=== PATIENT | male | born 1950 | race Hispanic/Latino ===

== ENCOUNTER 2018-09-19 12:26 | Inpatient (IN) | payer BC ==
[2018-09-19] MEDS: diltiaZEM IVPB 100mg in NS 100 ML IV ONE ×2 (12:52→13:30)
--- NOTE | 2018-09-19 12:56 | ED PDOC ---
Arrival/HPI - General Chief Complaint: Chest Pain Historian: Patient - History of Present Illness Narrative History of Present Illness (Text): 09/19/18 12:51 A 68 year old male, with no known past medical history, presents to the emergency department with a complaint of palpitations. The patient notes that he felt his heart racing this morning. He reports that he has been experiencing left arm pain for the past month, but believed it was due to arthritis. He states that he checked his blood pressure today which was high this morning. He states that he began to feel short of breath and diaphoretic. The patient currently complains of headache. He notes that he had a stress test done 10 years ago, but has not been evaluated by a superintendent renting managing since then. The patient denies fevers, chills, dizziness, dyspnea on exertion, cough, abdominal pain, nausea, vomiting, diarrhea, back pain, neck pain, urinary/bowel changes, or any other complaint. PMD: Dr. Erasto Aguila Time/Duration: Other (Today) Symptom Onset: Sudden Symptom Course: Unchanged Activities at Onset: Rest, Light Context: Home Past Medical History - Provider Review Nursing Documentation Reviewed: Yes - Psychiatric Hx Substance Use: No Family/Social History - Physician Review Nursing Documentation Reviewed: Yes Family/Social History: No Known Family HX Smoking Status: Never Smoked Hx Alcohol Use: No Hx Substance Use: No Allergies/Home Meds Allergies/Adverse Reactions: Allergies No Known Allergies Allergy (Verified 09/19/18 12:31) Home Medications: Home Meds Medication Instructions Recorded Confirmed Aspirin [Aspirin Chewable] 81 mg PO DAILY 09/19/18 09/19/18 Review of Systems - Physician Review All systems were reviewed & negative as marked: Yes - Review of Systems Constitutional: absent: Fevers ENT: absent: Sore Throat Respiratory: SOB. absent: Cough Cardiovascular: Palpitations Gastrointestinal: absent: Abdominal Pain, Stool Changes, Diarrhea, Nausea, Vomiting Genitourinary Male: absent: Urinary Output Changes Musculoskeletal: absent: Back Pain, Neck Pain Neurological: Headache. absent: Dizziness Endocrine: Diaphoresis Physical Exam Vital Signs Reviewed: Yes Vital Signs Temp Pulse Resp BP Pulse Ox 09/19/18 12:29 97.7 F 110 H 18 199/107 H 99 Temperature: Afebrile Blood Pressure: Hypertensive Pulse: Tachycardic Respiratory Rate: Normal Appearance: Positive for: Well-Appearing, Non-Toxic, Comfortable Pain Distress: None Mental Status: Positive for: Alert and Oriented X 3 - Systems Exam Head: Present: Atraumatic, Normocephalic Pupils: Present: PERRL Extroacular Muscles: Present: EOMI Conjunctiva: Present: Normal Mouth: Present: Moist Mucous Membranes Neck: Present: Normal Range of Motion Respiratory/Chest: Present: Clear to Auscultation, Good Air Exchange. No: Respiratory Distress, Accessory Muscle Use, Rales, Retracting, Rhonchi Cardiovascular: Present: Irregular Rhythm (Irregularly irregular). No: Murmurs Abdomen: Present: Distention. No: Tenderness, Rebound, Guarding Back: Present: Normal Inspection Upper Extremity: Present: Normal Inspection. No: Cyanosis, Edema Lower Extremity: Present: Normal Inspection. No: Edema Neurological: Present: GCS=15, CN II-XII Intact, Speech Normal Skin: Present: Warm, Dry, Normal Color. No: Rashes Psychiatric: Present: Alert, Oriented x 3, Normal Insight, Normal Concentration Medical Decision Making ED Course and Treatment: 09/19/18 12:58 Impression: A 68 year old male presents to the emergency department with a complaint of palpations, shortness of breath, headache, and becoming diaphoretic this morning. Plan: -- EKG -- Chest X-ray -- Urinalysis -- Labs -- Cardizem -- Reassess and disposition Progress Notes: 09/19/18 13:30 Patienr pressure currently 146/81 w/ HR 60. Cardizem drip held for now. Troponin and BNP pending. Spoke Dr. Kavon Randall(PCP) who accepts patient for admission and requests Dr. Brown(cardiology) for consult. - Lab Interpretations I have reviewed the lab results: Yes - RAD Interpretation Narrative RAD Interpretations (Text): Chest X-ray Dictated By: Nelida Meek MD Date Signed: 09/19/18 0002 IMPRESSION: Cardiomegaly. Radiology Orders: 09/19/18 12:49 CHEST PORTABLE [RAD] Stat - EKG Interpretation EKG Interpretation (Text): EKG: Ordered, reviewed, and independently interpreted the EKG. Rate : 111 BPM Rhythm : Irregularly Irregular Interpretation : RVR Interpreted by ED Physician: Yes Type: 12 lead EKG - Scribe Statement The provider has reviewed the documentation as recorded by the Scribe Lashawn Montilla Provider Eric Attestation: All medical record entries made by the Eric were at my direction and personally dictated by me. I have reviewed the chart and agree that the record accurately reflects my personal performance of the history, physical exam, medical decision making, and the department course for this patient. I have also personally directed, reviewed, and agree with the discharge instructions and disposition. Disposition/Present on Arrival - Present on Arrival Any Indicators Present on Arrival: No History of DVT/PE: No History of Uncontrolled Diabetes: No Urinary Catheter: No History of Decub. Ulcer: No History Surgical Site Infection Following: Orthopedic Procedures - Disposition Have Diagnosis and Disposition been Completed?: Yes Diagnosis: Atrial fibrillation Disposition: HOSPITALIZED Disposition Time: 13:23 Patient Plan: Admission Patient Problems: Current Active Problems Problem Status Onset Atrial fibrillation Acute
[2018-09-19] MEDS ORDERED: Sodium Chloride 0.9% 1,000 ML IV STA (13:10)
[2018-09-19 13:11] LABS: ALB/GLOB RATIO 1.3 (1.1-1.8); ALBUMIN 4.5 g/dL (3.0-4.8); ALT/SGPT 42 U/L (7-56); AST/SGOT 50 U/L (17-59); BLOOD UREA NITROGEN 18 mg/dL (7-21); CALCIUM 9.7 mg/dL (8.4-10.5); GFR NON-AFRICAN AMERICAN > 60
[2018-09-19 13:20] LABS: BASO # 0.04 K/mm3 (0.0-2.0); BASO % 0.4 % (0.0-3.0); EOS # 0.4 (0.0-0.7); EOS % 3.3 % (1.5-5.0); GRAN # 5.81 (1.4-6.5); LYMPH # 3.5 (1.2-3.4); LYMPH % 32.8 % (22.0-35.0); MEAN CORPUSCULAR HEMOGLOBIN 30.5 pg (25.0-35.0); MEAN CORPUSCULAR HGB CONC 34.3 g/dl (31.0-37.0); MEAN PLATELET VOLUME 10.8 fl (7.0-11.0); MONO # 0.9 (0.1-0.6); MONO % 8.5 % (1.0-6.0); RBC 5.25 10^6/uL (3.5-6.1); RED CELL DISTRIBUTION WIDTH 13.8 % (11.5-14.5); WHITE BLOOD COUNT 10.6 10^3/uL (4.5-11.0)
[2018-09-19 13:37] LABS: INR 1.03; PARTIAL THROMBOPLASTIN TIME 29.2 Seconds (25.1-36.5); PROTHROMBIN TIME 11.7 SECONDS (9.4-12.5)
[2018-09-19 13:53] LABS: B-TYPE NATRIURETIC PEPTIDE 538 pg/mL (0-450)
--- NOTE | 2018-09-19 14:57 | RAD ---
HISTORY: dyspnea COMPARISON: No prior. TECHNIQUE: Chest, one view. FINDINGS: LUNGS: No focal consolidation. Please note that chest x-ray has limited sensitivity for the detection of pulmonary masses. PLEURA: No significant pleural effusion identified. No definite pneumothorax . CARDIOVASCULAR: Cardiomegaly. No significant atherosclerotic calcification present. OSSEOUS STRUCTURES: Degenerative changes of the spine. VISUALIZED UPPER ABDOMEN: Unremarkable. OTHER FINDINGS: None. IMPRESSION: Cardiomegaly.
[2018-09-19 15:51] VITALS: BMI 34.4
--- NOTE | 2018-09-19 18:32 | CARD ---
APPROVED REPORT Date of service: 09/19/2018 EXAM: Two-dimensional and M-mode echocardiogram with Doppler and color Doppler. INDICATION NEW ONSET AFIB 2D DIMENSIONS IVSd1.3 (0.7-1.1cm)LVDd4.9 (3.9-5.9cm) PWd1.4 (0.7-1.1cm)LVDs3.7 (2.5-4.0cm) FS (%) 24.1 %LVEF (%)47.8 (>50%) M-Mode DIMENSIONS Left Atrium (MM)4.20 (2.5-4.0cm)Aortic Root4.00 (2.2-3.7cm) Aortic Cusp Exc.1.80 (1.5-2.0cm) Aortic Valve AoV Peak Accebhsc497.0cm/Josselin Peak GR.7mmHg Mitral Valve MV E Nayonmxl110.0cm/s TDI Lateral E' Peak V11.80cm/sMedial E' Peak V9.26cm/sE/Lateral E'9.2 E/Medial E'11.8 Tricuspid Valve TR Peak Rnfzugdf530yi/sRAP [id number] Peak Gr.25mmHg [id number] LEFT VENTRICLE The left ventricle is normal size. There is borderline to mild concentric left ventricular hypertrophy. The systolic function is mildly impaired. Septal hypokinesis No left ventricle thrombus noted on this study. RIGHT VENTRICLE The right ventricle is normal size. There is normal right ventricular wall thickness. The right ventricular systolic function is normal. ATRIA The left atrium is borderline dilated. The right atrium is borderline dilated. AORTIC VALVE The aortic valve is not well visualized. It may be bicuspid. No aortic regurgitation is present. There is no aortic valvular stenosis. MITRAL VALVE The mitral valve is normal in structure. Mitral regurgitation is mild. There is no mitral valve stenosis. TRICUSPID VALVE The tricuspid valve is normal in structure. There is mild tricuspid regurgitation. There is mild pulmonary hypertension. PULMONIC VALVE The pulmonary valve is normal in structure. There is no pulmonic valvular regurgitation. GREAT VESSELS The aortic root is normal in size. The IVC is normal in size and collapses >50% with inspiration. <Conclusion> The left ventricle is normal size. There is borderline to mild concentric left ventricular hypertrophy. The systolic function is mildly impaired. Septal hypokinesis Mitral regurgitation is mild. There is mild tricuspid regurgitation. There is mild pulmonary hypertension.
[2018-09-19] MEDS: Enoxaparin 100 mg Syringe SC SCH (19:13)
--- NOTE | 2018-09-19 21:43 | PN ---
DATE OF CONSULTATION: 09/19/2018 REASON FOR CONSULTATION: Chest discomfort as well as atrial fibrillation. HISTORY OF PRESENT ILLNESS: The patient is a 68-year-old male who has no significant past medical history, presents because of palpitations and chest discomfort and was found to be in rapid atrial fibrillation. The patient is unaware of any history of heart attack and denies any prior coronary intervention. The patient did report shortness of breath and diaphoresis. The patient denies any history of stroke in the past. SOCIAL HISTORY: Nonsmoker. MEDICATIONS: Cardizem 30 mg t.i.d. The patient was earlier on Cardizem infusion. REVIEW OF SYSTEMS: No nausea or vomiting. No fever or chills. PHYSICAL EXAMINATION: GENERAL: The patient is an elderly male who does not appear to be in acute distress. VITAL SIGNS: Blood pressure 142/108, heart rate 101, temperature 97.4, respirations 18. HEENT: Normocephalic. CHEST: Clear. HEART: S1 and S2 regular. ABDOMEN: Soft. EXTREMITIES: No edema. LABORATORY DATA: PT/PTT and INR as well as D-dimer are within normal limit. SMA-7: Sodium 143, potassium 4.0, chloride 107, CO2 of 27, glucose 139, BUN 18, creatinine 0.8. Troponin 0.5. CBC: WBC 10.6, hemoglobin 16, hematocrit 46.7, platelet count 163,000. Chest x-ray revealed mild cardiomegaly, no infiltrate. EKG could not be found in the [place] [employer] database. ASSESSMENT: 1. New onset atrial fibrillation. 2. Chest pain with borderline troponin elevation. Consider [id number] myocardial infarction. 3. Hypertension. RECOMMENDATIONS: Continue aspirin 81 mg once a day. Start therapeutic subcutaneous Lovenox at 100 mg twice a day. Start Lopressor at 50 mg twice a day, Lipitor 40 mg once a day, Cozaar 25 mg once a day. I will review the echocardiograph study done today and obtain a stat 12-lead EKG and obtain a TSH level. Alok Jaramillo MD
--- NOTE | 2018-09-19 22:08 | CP.PCM.PN ---
Subjective - Date & Time of Evaluation Date of Evaluation: 09/19/18 Time of Evaluation: 22:06 - Subjective Subjective: Received a call from who suggested that be transferred to CCU for observation, conveyed the message to . Objective - Vital Signs/Intake and Output Vital Signs (last 24 hours): Temp Pulse Resp BP Pulse Ox 97.4 F L 102 H 18 142/108 H 97 09/19/18 15:00 09/19/18 21:57 09/19/18 15:15 09/19/18 19:13 09/19/18 15:45 - Medications Medications: Current Medications Aspirin (Ecotrin) 81 mg PO DAILY [facility] Atorvastatin Calcium (Lipitor) 40 mg PO DIN [facility] Last Admin: 09/19/18 19:13 Dose: 40 mg Clopidogrel Bisulfate (Plavix) 75 mg PO DAILY [facility] Diltiazem HCl (Cardizem) 30 mg PO TID [facility] Last Admin: 09/19/18 17:16 Dose: 30 mg Enoxaparin Sodium (Lovenox) 100 mg SC Q12H [facility]; Protocol Last Admin: 09/19/18 19:13 Dose: 100 mg Losartan Potassium (Cozaar) 25 mg PO DAILY [facility] Last Admin: 09/19/18 19:13 Dose: 25 mg Metoprolol Tartrate (Lopressor) 50 mg PO BRKDIN [facility] - Labs Labs: 09/19/18 12:35 09/19/18 12:35 PT 11.7 SECONDS (9.4-12.5) 09/19/18 12:35 INR 1.03 09/19/18 12:35 APTT 29.2 Seconds (25.1-36.5) 09/19/18 12:35
[2018-09-19] MEDS ORDERED: Nitroglycerin 2% Ointment Foilpak UD TOP SCH (22:30)
--- NOTE | 2018-09-19 22:49 | CP.PCM.HP ---
History of Present Illness - History of Present Illness History of Present Illness: History of Present Illness: The patient is a 68 year old man with no significant past medical history who presented for evaluation of a 1 day history of chest pain and palpitations. For the past 2 weeks he has been experiencing intermittent dyspnea with exertion and left shoulder pain which he attributed to arthritis. He denied chest pain per se but did endorse diaphoresis associated with his dyspnea. On the day of presentation to the ED he developed a sudden onset of palpitations and became quite diaphoretic which prompted his ED visit. In the ED he was in new onset AFib with RVR and lab studies demonstrated and elevated troponin. He was subsequently admitted to the telemetry driver for continued management of new onset AFib with RVR and NSTEMI. Past Medical History: Lumbosacral radiculopathy and BPH. Past Surgical History: Prostate biopsy. Allergies: NKDA. Medications: Naprosyn 500 mg p.o. b.i.d. Family History: Non-contributory. Social History: He reports social EtOH use and denies tobacco use or illicit drug abuse. Review of Systems: A 12-point review of systems is negative except as per HPI. Physical Examination: VS: T 98.7, P 88, BP 142/108, RR 20, O2 99%RA General: No apparent distress. HEENT: PERRL, EOMI, no scleral icterus. Neck: No JVD, no bruits. Lungs: CTA Cardiovascular: tachycardic, irregularly irregular Abdomen: Normoactive bowel sounds, soft, NT, ND. Extremities: no c/c/e Neurologic: AAO x 3, no focal motor deficits Laboratory Data: CBC unremarkable. CMP unremarkable. Troponin 0.5 Assessment: The patient is a 68 year old man with no significant past medical history who was admitted for management of new onset AFib and NSTEMI. Plan: 1. NSTEMI. Cardiac eval pending with Dr. Brown. TTE pending. Start therapeutic Lovenox, ASA, Lipitor and Metoprolol. Cycle cardiac enzymes. Keep NPO past midnight for possible cardiac cath. 2. New onset AFib, consider secondary to NSTEMI. As above cardiac eval pending. TTE pending. Will check TSH. Titrate b-blockade as needed to optimize rate control. 3. Prophylaxis. GI prophylaxis not indicated as patient is eating. DVT prophylaxis not indicated as patient is on therapeutic Lovenox. Code Status: Full Code. Present on Admission - Present on Admission Any Indicators Present on Admission: No History of DVT/PE: No History of Uncontrolled Diabetes: No Urinary Catheter: No Decubitus Ulcer Present: No Past Patient History - Past Social History Smoking Status: Former Smoker - CARDIAC Hx Hypertension: Yes (today) - RENAL Other/Comment: Kidney spasm (20 years ago) - MUSCULOSKELETAL/RHEUMATOLOGICAL Hx Falls: No - GENITOURINARY/GYNECOLOGICAL Hx Prostate Problems: Yes (Enlarged) - PSYCHIATRIC Hx Substance Use: No - SURGICAL HISTORY Hx Surgeries: Yes (circumcision (2007)) Hx Cardiac Catheterization: Yes Meds Allergies/Adverse Reactions: Allergies Allergy/AdvReac Type Severity Reaction Status Date / Time No Known Allergies Allergy Verified 09/19/18 12:31 Results - Vital Signs Recent Vital Signs: Last Vital Signs Temp 97.4 F L 09/19/18 15:00 Pulse 102 H 09/19/18 21:57 Resp 18 09/19/18 15:15 BP 142/108 H 09/19/18 19:13 Pulse Ox 97 09/19/18 15:45 - Labs Result Diagrams: 09/19/18 12:35 09/19/18 12:35 Labs: Laboratory Results - last 24 hr 09/19/18 09/19/18 09/19/18 12:35 12:35 12:35 WBC 10.6 RBC 5.25 Hgb 16.0 Hct 46.7 MCV 89.0 MCH 30.5 MCHC 34.3 RDW 13.8 Plt Count 163 MPV 10.8 Gran % 55.0 Lymph % (Auto) 32.8 Morgan % (Auto) 8.5 H Eos % (Auto) 3.3 Baso % (Auto) 0.4 Gran # 5.81 Lymph # (Auto) 3.5 H Morgan # (Auto) 0.9 H Eos # (Auto) 0.4 Baso # (Auto) 0.04 PT 11.7 INR 1.03 APTT 29.2 D-Dimer, Quantitative 228 Sodium 143 Potassium 4.0 Chloride 107 Carbon Dioxide 27 Anion Gap 12 BUN 18 Creatinine 0.8 Est GFR ( Amer) > 60 Est GFR (Non-Af Amer) > 60 Random Glucose 139 H Calcium 9.7 Magnesium 2.0 Total Bilirubin 0.5 AST 50 ALT 42 Alkaline Phosphatase 91 Troponin I 0.50 H* NT-Pro-B Natriuret Pep 538 H Total Protein 7.9 Albumin 4.5 Globulin 3.4 Albumin/Globulin Ratio 1.3 09/19/18 20:25 WBC RBC Hgb Hct MCV MCH MCHC RDW Plt Count MPV Gran % Lymph % (Auto) Morgan % (Auto) Eos % (Auto) Baso % (Auto) Gran # Lymph # (Auto) Morgan # (Auto) Eos # (Auto) Baso # (Auto) PT INR APTT D-Dimer, Quantitative Sodium Potassium Chloride Carbon Dioxide Anion Gap BUN Creatinine Est GFR ( Amer) Est GFR (Non-Af Amer) Random Glucose Calcium Magnesium Total Bilirubin AST ALT Alkaline Phosphatase Troponin I 11.00 H* D NT-Pro-B Natriuret Pep Total Protein Albumin Globulin Albumin/Globulin Ratio
--- NOTE | 2018-09-19 22:55 | CP.PCM.CON ---
<Arron Toth - Last Filed: 09/19/18 22:47> History of Present Illness - History of Present Illness History of Present Illness: ICU Consult Note for Dr. Keane Patient is a 68 yo M with no known PMH [place] [facility] chest discomfort and palpitations. Patient also complains of left arm pain over the last month but states that he believes that it is due to arthritis. Patient admits to dyspnea on exertion and elevated BP at home in the 180's. Patient denies any past occurrence. Patient had a stress test about 10 years ago, but has not seen a senior technologist since. But does state that he routinely follows with his PMD. In the ED, patient was found to be in rapid atrial fibrillation and a borderline elevated troponin. However, repeat cardiac enzymes revealed a troponin of 11. Patient is currently having chest discomfort. ICU was consulted for NSTEMI and close monitoring. Patient denied SOB, n/v/d, abdominal pain, fever, chills, , or dizziness. PMH: Denied Surg: Adult circumcision All: NKDA SH: Denied tobacco and illicit drug use; Social EtOH FHx: Father - CAD/[place], Mother - CVA Review of Systems - Review of Systems All systems: reviewed and no additional remarkable complaints except (12 point ROS reviewed and is negative other than what is stated in HPI.) Past Patient History - Past Social History Smoking Status: Former Smoker - CARDIAC Hx Hypertension: Yes (today) - RENAL Other/Comment: Kidney spasm (20 years ago) - MUSCULOSKELETAL/RHEUMATOLOGICAL Hx Falls: No - GENITOURINARY/GYNECOLOGICAL Hx Prostate Problems: Yes (Enlarged) - PSYCHIATRIC Hx Substance Use: No - SURGICAL HISTORY Hx Surgeries: Yes (circumcision (2007)) Hx Cardiac Catheterization: Yes Meds Allergies/Adverse Reactions: Allergies Allergy/AdvReac Type Severity Reaction Status Date / Time No Known Allergies Allergy Verified 09/19/18 12:31 - Medications Medications: Current Medications Aspirin (Ecotrin) 81 mg PO DAILY [facility] Atorvastatin Calcium (Lipitor) 40 mg PO DIN [facility] Last Admin: 09/19/18 19:13 Dose: 40 mg Clopidogrel Bisulfate (Plavix) 75 mg PO DAILY [facility] Last Admin: 09/19/18 22:39 Dose: 75 mg Diltiazem HCl (Cardizem) 30 mg PO TID [facility] Enoxaparin Sodium (Lovenox) 100 mg SC Q12H [facility]; Protocol Last Admin: 09/19/18 19:13 Dose: 100 mg Losartan Potassium (Cozaar) 25 mg PO DAILY [facility] Last Admin: 09/19/18 19:13 Dose: 25 mg Metoprolol Tartrate (Lopressor) 50 mg PO BRKDIN [facility] Nitroglycerin (Nitro-Bid 2% Oint) 1 ea TOP Q6H [facility] Last Admin: 09/19/18 22:38 Dose: 1 ea Physical Exam - Constitutional Appears: No Acute Distress - Head Exam Head Exam: NORMAL INSPECTION - Eye Exam Eye Exam: Normal appearance, PERRL - ENT Exam ENT Exam: Mucous Membranes Moist, Normal Exam - Neck Exam Neck exam: Positive for: Normal Inspection - Respiratory Exam Respiratory Exam: Clear to Auscultation Bilateral. absent: Rales, Rhonchi, Wheezes - Cardiovascular Exam Cardiovascular Exam: Irregular Rhythm, +S1, +S2. absent: Gallop, Rubs, Systolic Murmur - GI/Abdominal Exam GI & Abdominal Exam: Soft. absent: Distended, Guarding, Rebound, Tenderness - Extremities Exam Extremities exam: Positive for: normal inspection - Back Exam Back exam: NORMAL INSPECTION - Neurological Exam Neurological exam: Alert, CN II-XII Intact, Oriented x3 - Psychiatric Exam Psychiatric exam: Normal Affect, Normal Mood - Skin Skin Exam: Dry, Intact, Normal Color Results - Vital Signs Recent Vital Signs: Last Vital Signs Temp 97.4 F L 09/19/18 15:00 Pulse 102 H 09/19/18 21:57 Resp 18 09/19/18 15:15 BP 142/108 H 09/19/18 19:13 Pulse Ox 97 09/19/18 15:45 - Labs Result Diagrams: 09/19/18 12:35 09/19/18 12:35 Labs: Laboratory Results - last 24 hr 09/19/18 09/19/18 09/19/18 12:35 12:35 12:35 WBC 10.6 RBC 5.25 Hgb 16.0 Hct 46.7 MCV 89.0 MCH 30.5 MCHC 34.3 RDW 13.8 Plt Count 163 MPV 10.8 Gran % 55.0 Lymph % (Auto) 32.8 Harvey % (Auto) 8.5 H Eos % (Auto) 3.3 Baso % (Auto) 0.4 Gran # 5.81 Lymph # (Auto) 3.5 H Harvey # (Auto) 0.9 H Eos # (Auto) 0.4 Baso # (Auto) 0.04 PT 11.7 INR 1.03 APTT 29.2 D-Dimer, Quantitative 228 Sodium 143 Potassium 4.0 Chloride 107 Carbon Dioxide 27 Anion Gap 12 BUN 18 Creatinine 0.8 Est GFR ( Amer) > 60 Est GFR (Non-Af Amer) > 60 Random Glucose 139 H Calcium 9.7 Magnesium 2.0 Total Bilirubin 0.5 AST 50 ALT 42 Alkaline Phosphatase 91 Troponin I 0.50 H* NT-Pro-B Natriuret Pep 538 H Total Protein 7.9 Albumin 4.5 Globulin 3.4 Albumin/Globulin Ratio 1.3 09/19/18 20:25 WBC RBC Hgb Hct MCV MCH MCHC RDW Plt Count MPV Gran % Lymph % (Auto) Harvey % (Auto) Eos % (Auto) Baso % (Auto) Gran # Lymph # (Auto) Harvey # (Auto) Eos # (Auto) Baso # (Auto) PT INR APTT D-Dimer, Quantitative Sodium Potassium Chloride Carbon Dioxide Anion Gap BUN Creatinine Est GFR ( Amer) Est GFR (Non-Af Amer) Random Glucose Calcium Magnesium Total Bilirubin AST ALT Alkaline Phosphatase Troponin I 11.00 H* D NT-Pro-B Natriuret Pep Total Protein Albumin Globulin Albumin/Globulin Ratio Assessment & Plan - Assessment and Plan (Free Text) Assessment: 68 yo M with no PMH admitted for chest pain and rapid a-fib. Cardiac enzymes were mildly elevated on admission, but elevated to 11 on most recent labs. No ST elevations were noted on EKG. ICU consulted and will transfer to ICU for close monitoring for NSTEMI. Plan: Neuro: - AOx3 - Maintain normothermia CV: - Troponin 0.5, 11; repeat x1 - EKG repeat showed atrial fibrillation and < [address] depression in leads V2-6 consistent with septal hypokinesis - Echo showed mildly depressed EF and septal hypokinesis - TSH and Lipid panel ordered - Therapeutic Lovenox - ASA and Plavix ordered - Nitroglycerin paste 1 inch q6h ordered - Cardizem and Lopressor ordered for rate control - Lipitor ordered - BP elevated, one dose hydralazine given - Cardiology following Pulm: - Maintain O2 sat > 92% - CXR negative GI: - HHD - NPO after MN, for possible cath if indicated per cardio Renal: - Maintain euvolemia - Avoid nephrotoxicagents Heme: - Therapeutic Lovenox Patient seen and discussed in detail with Dr. Keane. Alberto Toth, DO PGY2 <Mario Keane - Last Filed: 09/20/18 19:17> Meds - Medications Medications: Current Medications Aspirin (Ecotrin) 81 mg PO DAILY [facility] Last Admin: 09/20/18 09:21 Dose: 81 mg Atorvastatin Calcium (Lipitor) 40 mg PO DIN [facility] Last Admin: 09/20/18 17:13 Dose: 40 mg Diltiazem HCl (Cardizem) 30 mg PO TID [facility] Losartan Potassium (Cozaar) 25 mg PO DAILY [facility] Last Admin: 09/19/18 19:13 Dose: 25 mg Metoprolol Tartrate (Lopressor) 50 mg PO BRKDIN [facility] Last Admin: 09/20/18 17:12 Dose: 50 mg Ticagrelor (Brilinta) 90 mg PO BID [facility] Last Admin: 09/20/18 17:13 Dose: 90 mg Results - Vital Signs Recent Vital Signs: Last Vital Signs Temp 98.9 F 09/20/18 16:30 Pulse 120 H 09/20/18 18:00 Resp 18 09/20/18 18:00 BP 129/73 09/20/18 18:00 Pulse Ox 99 09/20/18 18:00 - Labs Result Diagrams: 09/20/18 03:25 09/20/18 03:25 Labs: Laboratory Results - last 24 hr 09/19/18 09/20/18 09/20/18 20:25 03:25 03:25 WBC 13.2 H D RBC 4.78 Hgb 14.4 Hct 42.2 MCV 88.3 MCH 30.1 MCHC 34.1 RDW 13.7 Plt Count 163 MPV 10.6 Gran % 76.7 H Lymph % (Auto) 14.4 L Harvey % (Auto) 7.9 H Eos % (Auto) 0.8 L Baso % (Auto) 0.2 Gran # 10.11 H Lymph # (Auto) 1.9 Harvey # (Auto) 1.0 H Eos # (Auto) 0.1 Baso # (Auto) 0.02 Sodium Potassium Chloride Carbon Dioxide Anion Gap BUN Creatinine Est GFR ( Amer) Est GFR (Non-Af Amer) Random Glucose Calcium Total Bilirubin AST ALT Alkaline Phosphatase Troponin I 11.00 H* D Total Protein Albumin Globulin Albumin/Globulin Ratio Triglycerides Cholesterol LDL Cholesterol Direct HDL Cholesterol TSH 3rd Generation 0.56 09/20/18 03:25 WBC RBC Hgb Hct MCV MCH MCHC RDW Plt Count MPV Gran % Lymph % (Auto) Harvey % (Auto) Eos % (Auto) Baso % (Auto) Gran # Lymph # (Auto) Harvey # (Auto) Eos # (Auto) Baso # (Auto) Sodium 138 Potassium 4.1 Chloride 106 Carbon Dioxide 26 Anion Gap 11 BUN 14 Creatinine 0.7 L Est GFR ( Amer) > 60 Est GFR (Non-Af Amer) > 60 Random Glucose 133 H Calcium 8.9 Total Bilirubin 0.8 AST 172 H D ALT 64 H Alkaline Phosphatase 79 Troponin I 23.80 H* D Total Protein 7.0 Albumin 3.9 Globulin 3.1 Albumin/Globulin Ratio 1.3 Triglycerides 105 Cholesterol 181 LDL Cholesterol Direct 128 HDL Cholesterol 38 TSH 3rd Generation Attending/Attestation - Attestation I have personally seen and examined this patient.: Yes I have fully participated in the care of the patient.: Yes I have reviewed all pertinent clinical information: Yes
[2018-09-20] MEDS ORDERED: Nitroglycerin 50mg in D5W 50 MG/250 ML BOTTLE IV PRN (00:12)
[2018-09-20] MEDS: Morphine 2 mg/ml ISec IVP STA ×2 (00:30→16:31)
[2018-09-20 04:03] LABS: LDL CHOLESTEROL 128 mg/dL (0-129)
[2018-09-20 04:16] LABS: ALB/GLOB RATIO 1.3 (1.1-1.8); ALBUMIN 3.9 g/dL (3.0-4.8); ALT/SGPT 64 U/L (7-56); AST/SGOT 172 U/L (17-59); BLOOD UREA NITROGEN 14 mg/dL (7-21); CALCIUM 8.9 mg/dL (8.4-10.5); GFR NON-AFRICAN AMERICAN > 60; HDL CHOLESTEROL 38 mg/dL (29-60)
[2018-09-20 05:07] LABS: BASO # 0.02 K/mm3 (0.0-2.0); BASO % 0.2 % (0.0-3.0); EOS # 0.1 (0.0-0.7); EOS % 0.8 % (1.5-5.0); GRAN # 10.11 (1.4-6.5); GRAN % 76.7 % (50.0-68.0); HEMOGLOBIN 14.4 g/dL (14.0-18.0); LYMPH # 1.9 (1.2-3.4); LYMPH % 14.4 % (22.0-35.0); MEAN CELL VOLUME 88.3 fl (80.0-105.0); MEAN CORPUSCULAR HEMOGLOBIN 30.1 pg (25.0-35.0); MEAN CORPUSCULAR HGB CONC 34.1 g/dl (31.0-37.0); MEAN PLATELET VOLUME 10.6 fl (7.0-11.0); MONO % 7.9 % (1.0-6.0); RBC 4.78 10^6/uL (3.5-6.1); RED CELL DISTRIBUTION WIDTH 13.7 % (11.5-14.5); WHITE BLOOD COUNT 13.2 10^3/uL (4.5-11.0)
[2018-09-20] MEDS: Enoxaparin 100 mg Syringe SC SCH (05:51)
--- NOTE | 2018-09-20 09:34 | PN ---
DATE: 09/20/2018 INCIDENT RESPONSE LEAD NOTE LOCATION: [facility]. SUBJECTIVE: The patient is resting in bed, states that he feels much better. No chest pain. Just a little dull left shoulder discomfort. No shortness of breath, cough, wheezing, chest congestion. No fever, chills, nausea or vomiting. No diaphoresis. The patient is resting with O2 via nasal cannula comfortable in bed. The patient at this time is on IV nitro. PHYSICAL EXAMINATION: VITAL SIGNS: Physical exam note that his peak his temperature is 98, pulse is 106, respirations are 18 and BP is 133/85. SKIN: Warm and dry. HEENT: Head atraumatic, normocephalic. Eyes reactive to light. Ears, nose and throat seemed to be within normal limits. NECK: Supple. No JVD. No thyroid enlargement. No lymph nodes. HEART: Has regular rate and rhythm, but mildly tachycardic. LUNGS: Reveal good breath sounds bilaterally. ABDOMEN: Soft. Decreased bowel sounds. GENITALIA AND RECTAL: Deferred. MUSCULOSKELETAL: No joint deformities. EXTREMITIES: Reveal no edema. NEUROLOGICAL: He seemed to be grossly intact. LABORATORY DATA: As far as his laboratories, the patient's white count is 13.2, hemoglobin is 14.4, hematocrit is 42.2 with platelets of 163,000. Sodium is 138, potassium 4.1, chloride 106, CO2 of 26 with a BUN of 14, creatinine of 0.7 and a glucose of 133. The patient's troponin this morning is 23.8. The patient's chest x-ray reveals no infiltrates and cardiomegaly. IMPRESSION: This patient presented with atrial fibrillation/atrial flutter with rapid ventricular response and chest pain with shortness of breath and diaphoresis. The patient noted to have [id number] myocardial infarction and troponins are elevated. Note that Cardiology has been consulted and has been called and talked to as well as primary care doctor. PLAN: As far as our plan, we will continue with O2 via nasal cannula, continue with the nitro drip IV. The patient is getting Ecotrin as well as Lipitor and continues on the Lopressor as well as the Lovenox. He is on as stated above the nitroglycerin IV, Plavix. We will continue to follow closely with Cardiology and follow their recommendations. Andres Rosario MD
[2018-09-20] MEDS ORDERED: Phenylephrine 10 mg/ml Inj ONE (09:49)
[2018-09-20] MEDS ORDERED: Verapamil 0 ML ONE (09:49)
[2018-09-20] MEDS ORDERED: Iohexol 350mgl/ml 50 ML ONE (09:50)
[2018-09-20] MEDS ORDERED: Iodixanol 320 MG/ML 100 ML BOTTLE IV ONE (09:50)
[2018-09-20] MEDS ORDERED: Iodixanol 320 MG/ML 200 ML BOTTLE IV ONE (09:50)
[2018-09-20] MEDS ORDERED: Nitroglycerin 50mg in D5W 0 MG/0 ML BOTTLE IV ONE (09:50)
[2018-09-20] MEDS ORDERED: Lidocaine 2% Inj (20ml) ONE (09:51)
[2018-09-20] MEDS ORDERED: Midazolam 2 MG/2 ML VIAL ONE (10:06)
[2018-09-20] MEDS ORDERED: Eptifibatide 0.75 mg/ml 75 MG/100 ML BOTTLE IV ONE (10:20)
[2018-09-20] MEDS ORDERED: Eptifibatide 20 mg/10mL Inj IVP ONE (10:21)
[2018-09-20] MEDS ORDERED: Iodixanol 320 mg/ml 150 ml Bottle IV ONE (10:34)
[2018-09-20] MEDS ORDERED: Morphine 2 mg/ml ISec ONE (10:47)
[2018-09-20] MEDS: Eptifibatide 0.75 mg/ml 75 MG/100 ML BOTTLE IV SCH ×3 (11:00→19:56)
--- NOTE | 2018-09-20 13:13 | PN ---
DATE: 09/20/2018 SUBJECTIVE: The case was discussed with mixer tender who reported that the patient is still having left shoulder pain. The case was discussed by the resident with Dr. Moscoso last night. However, the case was not considered to be candidate for [facility] activation. Today's phone line discussion with Dr. Taylor of in view of an elevated troponin which is 223.8 and persistent left shoulder pain. Case was discussed with Dr. Taylor who agreed to activate [facility] which was activated by this moment and the patient will be brought to the cardiac medical lab director for cardiac catheterization, possible intervention. Alok Jaramillo MD
[2018-09-20] MEDS ORDERED: Oxycodone/Acetaminophen 5/325 mg Tab PO ONE (16:10)
[2018-09-20] MEDS ORDERED: Morphine 2 mg/ml ISec IVP STA (16:14)
[2018-09-21] MEDS: Eptifibatide 0.75 mg/ml 75 MG/100 ML BOTTLE IV SCH (02:30)
[2018-09-21 05:10] LABS: BASO # 0.02 K/mm3 (0.0-2.0); BASO % 0.2 % (0.0-3.0); EOS # 0.2 (0.0-0.7); EOS % 2.2 % (1.5-5.0); GRAN # 6.88 (1.4-6.5); GRAN % 63.7 % (50.0-68.0); HEMOGLOBIN 14.1 g/dL (14.0-18.0); LYMPH # 2.7 (1.2-3.4); LYMPH % 24.6 % (22.0-35.0); MEAN CELL VOLUME 89.8 fl (80.0-105.0); MEAN CORPUSCULAR HEMOGLOBIN 30.1 pg (25.0-35.0); MEAN CORPUSCULAR HGB CONC 33.5 g/dl (31.0-37.0); MEAN PLATELET VOLUME 10.8 fl (7.0-11.0); MONO % 9.3 % (1.0-6.0); RBC 4.69 10^6/uL (3.5-6.1); WHITE BLOOD COUNT 10.8 10^3/uL (4.5-11.0)
[2018-09-21 06:35] LABS: ALB/GLOB RATIO 1.2 (1.1-1.8); ALBUMIN 3.5 g/dL (3.0-4.8); ALT/SGPT 49 U/L (7-56); AST/SGOT 91 U/L (17-59); BLOOD UREA NITROGEN 13 mg/dL (7-21); CALCIUM 8.7 mg/dL (8.4-10.5); GFR NON-AFRICAN AMERICAN > 60
--- NOTE | 2018-09-21 07:40 | CARD ---
APPROVED REPORT Date of service: 09/19/2018 EKG Measurement Heart [id number] <Conclusion> Atrial fibrillation with premature ventricular or aberrantly conducted complex NSSTW changes
--- NOTE | 2018-09-21 07:42 | CARD ---
APPROVED REPORT Date of service: 09/19/2018 EKG Measurement Heart [id number] <Conclusion> Atrial fibrillation with rapid ventricular response Nonspecific ST abnormality No change
--- NOTE | 2018-09-21 08:05 | PN ---
DATE: 09/19/2018 I was notified few minutes ago with a medical assistant supervisor that the patient is experiencing chest discomfort and latest EKG reveal that ST-segment depression. I did instruct him to notify the on-call supervisor fruit grading about the case for possible urgent cardiac catheterization and intervention. I did review the three earlier EKGs that were faxed to me and none of them had evidence of ST-injury pattern. The patient has been hemodynamically stable and no reported ventricular arrhythmia. Alok Jaramillo MD
--- NOTE | 2018-09-21 08:09 | PN ---
DATE: 09/20/2018 SUBJECTIVE: The patient underwent urgent cardiac catheterization and coronary stenting to the first obtuse marginal branch. He is currently in ICU on Integrilin infusion and was started on Brilinta. The right femoral sheath is still in, no reported groin bleeding. The patient denies any chest pain at this time. PHYSICAL EXAMINATION: VITAL SIGNS: Blood pressure 127/65, heart rate 94, and temperature 98.7. HEENT: Normocephalic. CHEST: Clear. HEART: S1 and S2 regular. EXTREMITIES: No groin hematoma and no peripheral edema. LABORATORY DATA: SMA-7: Sodium 138, potassium 4.1, chloride 106, CO2 26, glucose 133, BUN 14, and creatinine 0.7. Today's troponin is 23.8. Today's hemoglobin and hematocrit are 14.4 and 42.2, white count 15.2, and platelet count 163,000. ASSESSMENT: 1. Status post non-ST elevation myocardial infarction with successful stenting to the first obtuse marginal branch. 2. Mildly depressed left ventricular systolic function. 3. Mildly elevated liver enzymes. PLAN: Continue current Brilinta 90 mg twice a day, hold Cardizem for now. Continue aspirin 81 mg once a day, Integrilin infusion, Lipitor at 40 mg twice a day, and Lopressor at 60 mg twice a day. Alok Jaramillo MD
--- NOTE | 2018-09-21 09:45 | PN ---
SUBJECTIVE: The patient was seen and examined at bedside on the CCU. No acute events overnight. He remains afebrile, hemodynamically stable and is doing well s/p cardiac catheterization. He reports resolution of his left shoulder pain and offers no complaints. OBJECTIVE: VITAL SIGNS: Temperature 98.2, pulse 94, blood pressure 116/72, respiratory rate 18 and oxygen saturation 99% on room air. GENERAL: No apparent distress. HEENT: PERRL, EOMI. No scleral icterus. No conjunctival pallor. NECK: No JVD. No bruits. LUNGS: Clear to auscultation. CARDIOVASCULAR: Irregularly irregular. Normal S1 and S2. ABDOMEN: Normoactive bowel sounds. Soft, nontender and nondistended. EXTREMITIES: No edema. Cardiac catheterization site appears clean, dry and intact with no hematoma. NEUROLOGIC: Awake, alert and oriented x 3. No focal motor deficits. LABORATORY DATA: CBC reviewed and unremarkable. CMP reviewed and unremarkable. ASSESSMENT: The patient is a 68-year-old man with no significant past medical history who was admitted for management, new onset AFib and NSTEMI and is now s/p PCI with MARCELLA stent placement. PLAN: 1. NSTEMI s/p PCI with MARCELLA stent placement. Input from Dr. Schroeder and Dr. Jaramillo greatly appreciated. The patient remains hemodynamically stable and chest pain free. Continue Aspirin 81 mg p.o. daily, Lipitor 40 mg p.o. daily, Metoprolol 50 mg p.o. b.i.d. and Brilinta 90 mg p.o. b.i.d. 2. CAD s/p NSTEMI s/p PCI with MARCELLA stent placement. Continue with care as per #1. 3. New onset AFib, likely secondary to NSTEMI. The patient remains rate- controlled. Continue Metoprolol 50 mg p.o. b.i.d. 4. Prophylaxis. GI prophylaxis not indicated as the patient is eating. DVT prophylaxis not indicated as the patient is ambulatory. CODE STATUS: Full code. Donaldo Aguila MD [facility]
--- NOTE | 2018-09-21 11:15 | CP.CCUPN ---
<JaceyBrandon - Last Filed: 09/21/18 11:11> CCU Subjective - Physician Review Subjective (Free Text): Patient seen and examined at bedside. No complaints reported by patient. No acute events overnight. Patient denied CP, SOB, diaphoresis, palpitations. CCU Objective - Vital Signs / Intake & Output Vital Signs (Last 4 hours): Vital Signs Pulse Resp BP Pulse Ox 09/21/18 10:15 95 H 24 107/64 96 09/21/18 10:09 96 H 105/65 09/21/18 10:00 101 H 23 105/65 95 09/21/18 09:45 102 H 26 H 98/68 L 94 L 09/21/18 09:39 101 H 16 09/21/18 09:30 96 H 27 H 113/63 96 09/21/18 09:15 96 H 27 H 110/55 L 94 L 09/21/18 09:00 92 H 26 H 115/70 95 09/21/18 08:45 127/67 09/21/18 08:44 95 H 10 L 96 09/21/18 08:30 111 H 21 143/79 98 09/21/18 08:15 110 H 35 H 123/79 96 09/21/18 08:12 94 H 116/72 09/21/18 08:00 116/72 09/21/18 07:59 102 H 27 H 97 09/21/18 07:45 133/81 09/21/18 07:44 91 H 19 94 L 09/21/18 07:31 113 H 12 143/81 98 09/21/18 07:15 97 H 13 122/68 95 Intake and Output (Last 8hrs): Intake & Output 09/20/18 09/21/18 09/21/18 22:59 06:59 14:59 Intake Total 1521 352 Output Total 475 1450 Balance 1046 -1098 Weight 191 lb Intake: IV 1121 112 left antecubital 1121 112 Oral 400 240 Output: Urine 475 1450 Urine, Voided 475 1450 Stool 0 - Physical Exam Head: Positive for: Atraumatic, Normocephalic Pupils: Positive for: PERRL Extroacular Muscles: Positive for: EOMI Conjunctiva: Positive for: Normal Mouth: Positive for: Moist Mucous Membranes Neck: Positive for: Normal Range of Motion Respiratory/Chest: Positive for: Clear to Auscultation, Good Air Exchange. Negative for: Respiratory Distress, Accessory Muscle Use, Rales, Retracting, Rhonchi Cardiovascular: Positive for: Irregular Rhythm (Irregularly irregular). Negative for: Murmurs Abdomen: Positive for: Distention. Negative for: Tenderness, Rebound, Guarding Back: Positive for: Normal Inspection Upper Extremity: Positive for: Normal Inspection. Negative for: Cyanosis, Edema Lower Extremity: Positive for: Normal Inspection. Negative for: Edema Neurological: Positive for: GCS=15, CN II-XII Intact, Speech Normal Skin: Positive for: Warm, Dry, Normal Color. Negative for: Rashes Psychiatric: Positive for: Alert, Oriented x 3, Normal Insight, Normal Concentration - Medications Active Medications: Active Medications Generic Name Dose Route Start Last Admin Trade Name Freq PRN Reason Stop Dose Admin Aspirin 81 mg 09/20/18 10:00 09/21/18 10:09 Ecotrin PO 81 mg DAILY ZHENG Administration Atorvastatin Calcium 40 mg 09/19/18 18:00 09/20/18 17:13 Lipitor PO 40 mg DIN ZHENG Administration Losartan Potassium 25 mg 09/19/18 18:00 09/21/18 10:09 Cozaar PO 25 mg DAILY ZHENG Administration Metoprolol Tartrate 50 mg 09/20/18 07:30 09/21/18 08:12 Lopressor PO 50 mg BRKDIN ZHENG Administration Ticagrelor 90 mg 09/20/18 18:00 09/21/18 10:10 Brilinta PO 90 mg BID ZHENG Administration - Patient Studies Lab Studies: Lab Studies 09/21/18 09/21/18 Range/Units 04:59 04:59 WBC 10.8 (4.5-11.0) 10^3/uL RBC 4.69 (3.5-6.1) 10^6/uL Hgb 14.1 (14.0-18.0) g/dL Hct 42.1 (42.0-52.0) % MCV 89.8 (80.0-105.0) fl MCH 30.1 (25.0-35.0) pg MCHC 33.5 (31.0-37.0) g/dl RDW 14.0 (11.5-14.5) % Plt Count 143 (120.0-450.0) 10^3/uL MPV 10.8 (7.0-11.0) fl Gran % 63.7 (50.0-68.0) % Lymph % (Auto) 24.6 (22.0-35.0) % Mcdonald % (Auto) 9.3 H (1.0-6.0) % Eos % (Auto) 2.2 (1.5-5.0) % Baso % (Auto) 0.2 (0.0-3.0) % Gran # 6.88 H (1.4-6.5) Lymph # (Auto) 2.7 (1.2-3.4) Mcdonald # (Auto) 1.0 H (0.1-0.6) Eos # (Auto) 0.2 (0.0-0.7) Baso # (Auto) 0.02 (0.0-2.0) K/mm3 Sodium 140 (132-148) mmol/L Potassium 4.6 (3.6-5.0) mmol/L Chloride 103 (98-107) mmol/L Carbon Dioxide 30 (21-33) mmol/L Anion Gap 11 (10-20) BUN 13 (7-21) mg/dL Creatinine 0.9 (0.8-1.5) mg/dl Est GFR ( Amer) > 60 Est GFR (Non-Af Amer) > 60 Random Glucose 117 H (70-110) mg/dL Calcium 8.7 (8.4-10.5) mg/dL Total Bilirubin 1.0 (0.2-1.3) mg/dL AST 91 H D (17-59) U/L ALT 49 (7-56) U/L Alkaline Phosphatase 67 (38-126) U/L Total Protein 6.5 (5.8-8.3) g/dL Albumin 3.5 (3.0-4.8) g/dL Globulin 3.0 gm/dL Albumin/Globulin Ratio 1.2 (1.1-1.8) Laboratory Results - last 24 hr 09/21/18 09/21/18 04:59 04:59 WBC 10.8 RBC 4.69 Hgb 14.1 Hct 42.1 MCV 89.8 MCH 30.1 MCHC 33.5 RDW 14.0 Plt Count 143 MPV 10.8 Gran % 63.7 Lymph % (Auto) 24.6 Mcdonald % (Auto) 9.3 H Eos % (Auto) 2.2 Baso % (Auto) 0.2 Gran # 6.88 H Lymph # (Auto) 2.7 Mcdonald # (Auto) 1.0 H Eos # (Auto) 0.2 Baso # (Auto) 0.02 Sodium 140 Potassium 4.6 Chloride 103 Carbon Dioxide 30 Anion Gap 11 BUN 13 Creatinine 0.9 Est GFR ( Amer) > 60 Est GFR (Non-Af Amer) > 60 Random Glucose 117 H Calcium 8.7 Total Bilirubin 1.0 AST 91 H D ALT 49 Alkaline Phosphatase 67 Total Protein 6.5 Albumin 3.5 Globulin 3.0 Albumin/Globulin Ratio 1.2 EKG/Cardiology Studies: Cardiology / EKG Studies 09/20/18 10:58 ELECTROCARDIOGRAM Urgent Comment: 12 lead EKG upon arrival in unit Reason For Exam: post ptca Critical Care Progress Note - Nutrition Nutrition: Nutrition Category Date Time Status Heart Healthy Diet [DIET] Diets 09/20/18 Dinner Active Assessment/Plan - Assessment and Plan (Free Text) Assessment: 68 y/o male with no PMH admitted to ICU for NSTMI with elevated troponin of 23.8. S/P PCI with stent place in OM artery and RCA balloon. Hemodynamically stable, afebrile. Intact femoral wound Plan: Neuro: - AOx3 - Maintain normothermia CV: - No h/o of HTN or CAD - Family history of premature CAD - Troponin 11 -> 23.8 - S/P PCI with stent place in OM artery and RCA balloon - Right groin incision intact, clean, no tenderness, no erythema. Patient ambulating OOB - EKG: new onset atrial fibrillation and < [address] depression in leads V2-6 consistent with septal hypokinesis - Echo showed mildly depressed EF and septal hypokinesis - Ccontinue Lopressor, losartan - Continue Lipitor, ASA - continue Brilinta - Cardiology following Pulm: - Maintain O2 sat > 92% - CXR negative GI: - HHD Renal: - Maintain euvolemia - Avoid nephrotoxicagents Dispo: -Transfer to telemetry Case reviewed and plan discussed with Dr. Kian Mari, DO, PGY1 <Kimani Langston - Last Filed: 09/21/18 13:40> CCU Objective - Vital Signs / Intake & Output Vital Signs (Last 4 hours): Vital Signs Pulse Resp BP Pulse Ox 09/21/18 10:15 95 H 24 107/64 96 09/21/18 10:09 96 H 105/65 09/21/18 10:00 101 H 23 105/65 95 09/21/18 09:45 102 H 26 H 98/68 L 94 L 09/21/18 09:39 101 H 16 Intake and Output (Last 8hrs): Intake & Output 09/20/18 09/21/18 09/21/18 22:59 06:59 14:59 Intake Total 1521 352 Output Total 475 1450 Balance 1046 -1098 Weight 191 lb Intake: IV 1121 112 left antecubital 1121 112 Oral 400 240 Output: Urine 475 1450 Urine, Voided 475 1450 Stool 0 - Medications Active Medications: Active Medications Generic Name Dose Route Start Last Admin Trade Name Freq PRN Reason Stop Dose Admin Aspirin 81 mg 09/20/18 10:00 09/21/18 10:09 Ecotrin PO 81 mg DAILY ZHENG Administration Atorvastatin Calcium 40 mg 09/19/18 18:00 09/20/18 17:13 Lipitor PO 40 mg DIN ZHENG Administration Losartan Potassium 25 mg 09/19/18 18:00 09/21/18 10:09 Cozaar PO 25 mg DAILY ZHENG Administration Metoprolol Tartrate 50 mg 09/20/18 07:30 09/21/18 08:12 Lopressor PO 50 mg BRKDIN ZHENG Administration Ticagrelor 90 mg 09/20/18 18:00 09/21/18 10:10 Brilinta PO 90 mg BID ZHENG Administration - Patient Studies Lab Studies: Lab Studies 09/21/18 09/21/18 Range/Units 04:59 04:59 WBC 10.8 (4.5-11.0) 10^3/uL RBC 4.69 (3.5-6.1) 10^6/uL Hgb 14.1 (14.0-18.0) g/dL Hct 42.1 (42.0-52.0) % MCV 89.8 (80.0-105.0) fl MCH 30.1 (25.0-35.0) pg MCHC 33.5 (31.0-37.0) g/dl RDW 14.0 (11.5-14.5) % Plt Count 143 (120.0-450.0) 10^3/uL MPV 10.8 (7.0-11.0) fl Gran % 63.7 (50.0-68.0) % Lymph % (Auto) 24.6 (22.0-35.0) % Mcdonald % (Auto) 9.3 H (1.0-6.0) % Eos % (Auto) 2.2 (1.5-5.0) % Baso % (Auto) 0.2 (0.0-3.0) % Gran # 6.88 H (1.4-6.5) Lymph # (Auto) 2.7 (1.2-3.4) Mcdonald # (Auto) 1.0 H (0.1-0.6) Eos # (Auto) 0.2 (0.0-0.7) Baso # (Auto) 0.02 (0.0-2.0) K/mm3 Sodium 140 (132-148) mmol/L Potassium 4.6 (3.6-5.0) mmol/L Chloride 103 (98-107) mmol/L Carbon Dioxide 30 (21-33) mmol/L Anion Gap 11 (10-20) BUN 13 (7-21) mg/dL Creatinine 0.9 (0.8-1.5) mg/dl Est GFR ( Amer) > 60 Est GFR (Non-Af Amer) > 60 Random Glucose 117 H (70-110) mg/dL Calcium 8.7 (8.4-10.5) mg/dL Total Bilirubin 1.0 (0.2-1.3) mg/dL AST 91 H D (17-59) U/L ALT 49 (7-56) U/L Alkaline Phosphatase 67 (38-126) U/L Total Protein 6.5 (5.8-8.3) g/dL Albumin 3.5 (3.0-4.8) g/dL Globulin 3.0 gm/dL Albumin/Globulin Ratio 1.2 (1.1-1.8) Laboratory Results - last 24 hr 09/21/18 09/21/18 04:59 04:59 WBC 10.8 RBC 4.69 Hgb 14.1 Hct 42.1 MCV 89.8 MCH 30.1 MCHC 33.5 RDW 14.0 Plt Count 143 MPV 10.8 Gran % 63.7 Lymph % (Auto) 24.6 Mcdonald % (Auto) 9.3 H Eos % (Auto) 2.2 Baso % (Auto) 0.2 Gran # 6.88 H Lymph # (Auto) 2.7 Mcdonald # (Auto) 1.0 H Eos # (Auto) 0.2 Baso # (Auto) 0.02 Sodium 140 Potassium 4.6 Chloride 103 Carbon Dioxide 30 Anion Gap 11 BUN 13 Creatinine 0.9 Est GFR ( Amer) > 60 Est GFR (Non-Af Amer) > 60 Random Glucose 117 H Calcium 8.7 Total Bilirubin 1.0 AST 91 H D ALT 49 Alkaline Phosphatase 67 Total Protein 6.5 Albumin 3.5 Globulin 3.0 Albumin/Globulin Ratio 1.2 EKG/Cardiology Studies: Cardiology / EKG Studies 09/21/18 11:23 EKG [ELECTROCARDIOGRAM] Stat Comment: Reason For Exam: left shoulder pain PRE OP:: N Does Patient Have a Pacemaker?: No PERFORMING PHYSICIAN/PROVIDER:: Kings Brown Critical Care Progress Note - Nutrition Nutrition: Nutrition Category Date Time Status Heart Healthy Diet [DIET] Diets 09/20/18 Dinner Active Assessment/Plan - Assessment and Plan (Free Text) Plan: Patient seen and examined on rounds with resident, agree with note with following additions/exceptions: Patient is 68yo male without sig PMHx admitted with NSTEMI, s/p cardiac cath, stent placed OM, RCA ballooned. Currently afebrile, HD stable, comfortable in NAD Cardiology following New onset Afib NSTEMI s/p cardiac cath Afib, new onset Recommend: - supp o2 as needed, duonebs PRN - NO ID issues - ASA, Brillinta, Statin - rate control, BB - Losartan - A/C as per cardiology - GI ppx - DVT ppx - AMbulation - Transfer to telemetry
--- NOTE | 2018-09-21 14:51 | PN ---
DATE: 09/21/2018 SUBJECTIVE: The patient is chest pain free after emergency PTCA and stent. PHYSICAL EXAMINATION: VITAL SIGNS: Blood pressure is 116/72, the heart rates in the 80s. NECK: Negative JVD. LUNGS: Without rales. HEART: Regular S1, S2. EXTREMITIES: Without edema. LABORATORY DATA: Hemoglobin is 14.1. Chemistries, BUN and creatinine are unremarkable. IMPRESSION: 1. Status post [id number] myocardial infarction. 2. Hypertension. 3. Hypercholesterolemia. 4. Multivessel coronary artery disease. 5. Obesity. PLAN: Given these findings, the patient needs to be transferred to telemetry today where he can ambulate. If his symptoms are stable in the morning, we will consider discharge in the morning. Kings Brown MD
--- NOTE | 2018-09-21 19:24 | CARD ---
APPROVED REPORT Date of service: 09/21/2018 EKG Measurement Heart [id number] <Conclusion> Atrial fibrillation Nonspecific T wave abnormality, probably digitalis effect Abnormal ECG
[2018-09-22 06:02] LABS: BASO # 0.02 K/mm3 (0.0-2.0); BASO % 0.2 % (0.0-3.0); EOS # 0.4 (0.0-0.7); EOS % 3.6 % (1.5-5.0); GRAN # 6.11 (1.4-6.5); GRAN % 58.8 % (50.0-68.0); HEMOGLOBIN 13.9 g/dL (14.0-18.0); LYMPH % 28.5 % (22.0-35.0); MEAN CELL VOLUME 89.3 fl (80.0-105.0); MEAN CORPUSCULAR HEMOGLOBIN 29.7 pg (25.0-35.0); MEAN CORPUSCULAR HGB CONC 33.3 g/dl (31.0-37.0); MEAN PLATELET VOLUME 10.5 fl (7.0-11.0); MONO # 0.9 (0.1-0.6); MONO % 8.9 % (1.0-6.0); RBC 4.68 10^6/uL (3.5-6.1); RED CELL DISTRIBUTION WIDTH 13.9 % (11.5-14.5); WHITE BLOOD COUNT 10.4 10^3/uL (4.5-11.0)
[2018-09-22 06:28] LABS: ALB/GLOB RATIO 1.2 (1.1-1.8); ALBUMIN 3.7 g/dL (3.0-4.8); ALT/SGPT 58 U/L (7-56); AST/SGOT 70 U/L (17-59); BLOOD UREA NITROGEN 18 mg/dL (7-21); GFR NON-AFRICAN AMERICAN > 60
--- NOTE | 2018-09-22 10:05 | PN ---
SUBJECTIVE: The patient was seen and examined at bedside on the telemetry driver. No acute events overnight. He remains afebrile, hemodynamically stable and continues to do well status post cardiac catheterization. He is ambulating around the telemetry driver with no recurrence of chest pain, feels great and is looking forward to discharge home. OBJECTIVE: VITAL SIGNS: Temperature 98.2, pulse 69, blood pressure 106/68, respiratory rate 18 and oxygen saturation 97% on room air. GENERAL: No apparent distress. HEENT: PERRL, EOMI. No scleral icterus. No conjunctival pallor. NECK: No JVD, no bruits. LUNGS: Clear to auscultation. CARDIOVASCULAR: Irregularly irregular. Normal S1, S2. ABDOMEN: Normoactive bowel sounds. Soft, nontender, nondistended. EXTREMITIES: No edema. Cardiac catheterization site appears clean, dry and intact with no hematoma or femoral bruit. NEUROLOGIC: Awake, alert and oriented x 3. No focal motor deficits. LABORATORY DATA: CBC reviewed and unremarkable. CMP reviewed and unremarkable. ASSESSMENT: The patient is a 68-year-old man with no significant past medical history who was admitted for management of new onset AFib and NSTEMI and is now s/p PCI with MARCELLA stent placement. PLAN: 1. NSTEMI s/p PCI with MARCELLA stent placement. Continue Lipitor 40 mg p.o. daily. We will discontinue ASA 81 mg p.o. daily and Brilinta 90 mg p.o. b.i.d. and start Plavix 75 mg p.o. daily. 2. CAD s/p NSTEMI s/p MARCELLA stent placement. Continue with care as per #1. 3. New onset AFib, likely secondary to non-STEMI. We will start Eliquis 5 mg p.o. b.i.d. and discontinue Metoprolol. We will start Sotalol 80 mg p.o. b.i.d. 4. Prophylaxis. GI prophylaxis not indicated as the patient is eating. DVT prophylaxis not indicated as the patient is ambulatory. CODE STATUS: Full code. Donaldo Aguila MD [facility] # [id number]
--- NOTE | 2018-09-22 10:22 | PN ---
DATE: 09/22/2018 HISTORY OF PRESENT ILLNESS: The patient is chest pain free. PHYSICAL EXAMINATION: VITAL SIGNS: However, on physical exam, his heart rate resting is in the 120s and increased is 140s on ambulation, blood pressure 106/68. NECK: Negative JVD. LUNGS: Without rales. HEART: S1 and S2. EXTREMITIES: Without edema. LABORATORY DATA: BUN and creatinine are unremarkable. The hemoglobin is 13. IMPRESSION: 1. Status post acute myocardial infarction. 2. Status post emergency percutaneous transluminal coronary angioplasty and stent of the circumflex artery. 3. History of atrial fibrillation which is likely new. 4. Ischemic dilated cardiomyopathy. 5. Hypercholesterolemia. PLAN: Given these findings, we will need to keep the patient in the hospital for another day or two to help control his heart rate. We will change his beta blockers to sotalol which has a better antiarrhythmic effect than metoprolol. In addition, we will add Eliquis to his regimen for anticoagulation to prevent thromboembolic phenomenon. In addition, we will change his his Brilinta to Plavix in combination with Eliquis which may be safer for bleeding. I have discussed this in detail with the patient as well as his [id number] who is a physician. All questions were answered. Kings Brown MD
[2018-09-23 05:54] LABS: BASO # 0.03 K/mm3 (0.0-2.0); BASO % 0.3 % (0.0-3.0); EOS # 0.5 (0.0-0.7); EOS % 4.5 % (1.5-5.0); GRAN # 6.04 (1.4-6.5); GRAN % 60.8 % (50.0-68.0); HEMOGLOBIN 13.5 g/dL (14.0-18.0); LYMPH # 2.5 (1.2-3.4); LYMPH % 25.5 % (22.0-35.0); MEAN CELL VOLUME 89.3 fl (80.0-105.0); MEAN CORPUSCULAR HEMOGLOBIN 29.5 pg (25.0-35.0); MEAN PLATELET VOLUME 11.1 fl (7.0-11.0); MONO # 0.9 (0.1-0.6); MONO % 8.9 % (1.0-6.0); RBC 4.58 10^6/uL (3.5-6.1); WHITE BLOOD COUNT 9.9 10^3/uL (4.5-11.0)
[2018-09-23 06:07] LABS: ALB/GLOB RATIO 1.1 (1.1-1.8); ALBUMIN 3.6 g/dL (3.0-4.8); ALT/SGPT 88 U/L (7-56); AST/SGOT 73 U/L (17-59); BLOOD UREA NITROGEN 19 mg/dL (7-21); CALCIUM 8.9 mg/dL (8.4-10.5); GFR NON-AFRICAN AMERICAN > 60
--- NOTE | 2018-09-23 08:58 | PN ---
DATE: 09/23/2018 CARDIOLOGY FOLLOWUP SUBJECTIVE: The patient is ambulating without angina. OBJECTIVE: VITAL SIGNS: Blood pressure is 120/85, heart rate is still approximately 100. NECK: Negative JVD. LUNGS: Without rales. HEART: Reveals S1, S2. EXTREMITIES: Without edema. LABORATORY DATA: Hemoglobin 13.5. Chemistries, BUN and creatinine unremarkable. Glucose is 118. IMPRESSION: 1. Non-ST elevation myocardial infarction. 2. New-onset atrial fibrillation. 3. Diabetes mellitus. 4. Heart rate is still not quite controlled. Given these findings, we will continue his current medications for next 24 hours. We will continue sotalol, Plavix and Eliquis. We will DC his aspirin. Kings Brown MD
--- NOTE | 2018-09-23 20:37 | PN ---
DATE: 09/23/2018 DAILY PROGRESS NOTE SUBJECTIVE: The patient was seen and examined at bedside on telemetry driver. No acute events overnight. He remains afebrile, hemodynamically stable and chest pain-free. Overall, the patient reports significant improvement since admission and is looking forward to discharge home. OBJECTIVE: VITAL SIGNS: Temperature 98.1, pulse 94, blood pressure 138/86, respiratory rate 20, oxygen saturation 99% on room air. GENERAL: No apparent distress. HEENT: PERRL, EOMI. No scleral icterus. No conjunctival pallor. NECK: No JVD, no bruits. LUNGS: Clear to auscultation. CARDIOVASCULAR: Irregularly irregular. Normal S1, S2. ABDOMEN: Normoactive bowel sounds. Soft, nontender, nondistended. EXTREMITIES: No edema. Cardiac catheterization site appears clean, dry and intact with no hematoma or femoral bruit. NEUROLOGIC: Awake, alert and oriented x3. No focal motor deficits. LABORATORY DATA: CBC reviewed and unremarkable. CMP reviewed and unremarkable. ASSESSMENT: The patient is a 68-year-old man with no significant past medical history, who was admitted for management of new-onset atrial fibrillation and non-ST elevation myocardial infarction and is now status post percutaneous coronary intervention with drug-eluting stent placement. PLAN: 1. Non-STEMI, status post PCI with MARCELLA stent placement. Continue Lipitor 40 mg p.o. daily and Plavix 75 mg p.o. daily. 2. CAD, status post non-STEMI, status post MARCELLA stent placement. Continue with care as per #1. 3. Atrial fibrillation. Continue Eliquis 5 mg p.o. b.i.d. and sotalol 80 mg p.o. b.i.d. 4. Prophylaxis. GI prophylaxis not indicated as the patient is eating. DVT prophylaxis not indicated as the patient remains on Eliquis. CODE STATUS: Full code. Donaldo Aguila MD
--- NOTE | 2018-09-24 06:09 | CARD ---
APPROVED REPORT Date of service: 09/20/2018 Procedure(s) performed: Left Heart Catheterization Complete Heart Catheterization Left Ventriculogram PTCA with Stenting HISTORY The patient is a 68 year-old male with a history of : tobacco history() : The patient is a former smoker , hypertension , dyslipidemia . INDICATION The indication(s) include : non-STEMI (>6 hrs to = 12 hrs), chest pain. CASE TECHNIQUE The patient was brought emergently to the Cardiac Catheterization Laboratory in a fasting state and was prepped and draped in a sterile manner. The right femoral groin was infiltrated with 2% Lidocaine subcutaneous anesthesia. A 6 Fr x 11 cm Lula sheath was inserted using coronary diagnostic catheters. The left coronary system was accessed and visualized with a Diagnostic catheter. The right coronary system was accessed and visualized with a Diagnostic catheter. The left ventricle was accessed and visualized with a Diagnostic catheter. Left ventricular/Aortic Valve gradient assessed on pullback. Left ventriculogram was performed in [place] projection. The patient tolerated the procedure well and there were no complications associated with the procedure. Vessel Analysis The patient's coronary anatomy is co-dominant. The left main coronary artery is a medium size vessel . There is a 20% stenosis . The left main bifurcates to the left anterior descending and circumflex. The left anterior descending artery is a medium size vessel . There is a 50% stenosis in the proximal segment. Mid there is 30% The first diagonal branch is a medium size vessel . There is a 50% stenosis . The circumflex artery is a large size vessel . There is a 50% stenosis in the mid segment. The first obtuse marginal branch is a medium size vessel . There is a 95% stenosis in the ostial segment. There is TATE II flow The right coronary artery is a medium size vessel . There is a 70% stenosis in the mid segment. Left Ventricle The left ventricle is normal in size with general hypo contractility. The left ventricular ejection fraction is estimated to be 40%. There was no gradient across the aortic valve upon pullback. PCI Technique Lesion Anticoagulation was achieved with Heparin, Integrilin. Percutaneous coronary intervention was performed on the first obtuse marginal branch segment. The lesion stenosis prior to intervention was 95% with TATE 2 flow. A 6 Fr XB 3.5 Guide Catheter was used to engage the lm ostium. A 0.014 x 180 cm Runthrough NS Interventional Guidewire was used to cross the lesion. BALLOON DILATION A Balloon catheter 2.5 x 12 mm Sprinter RX was inserted and inflated up to 9.00atm for 17seconds. Repeat angiography revealed the following post-dilatation results: improved flow. STENT DEPLOYMENT A drug-eluting stent STENT RESOLUTE MARTELL 2.5 X26 was inserted and inflated up to 14.00atm for 9seconds. PTCA of the Cx was performed. POST STENT DEPLOYMENT BALLOON DILATION A Balloon catheter 2.75 x 12 mm Trek RX NC was inserted and inflated up to 12.00atm for 11seconds. Repeat angiography revealed the following post-stent deployment results: Tate III flow in both ateries.. Kissing bollon inflation was performed. Final angiography reveals 0 % stenosis with TATE 3 flow. PCI Technique Lesion 2 Percutaneous Coronary Intervention was performed on the mid circumflex artery segment. Conclusion Three vessel CAD. Mild depressed EF. TATE II flow of the om1. Successful PTCA/Stent of the OM1 with MARCELLA. PTC of the Cx. Recommendations Smoking Cessation Cardiac Rehabilitation Referral Aggressive Medical Therapy Consider stage PTCA of the RCA.
[2018-09-24 06:49] LABS: ALB/GLOB RATIO 1.2 (1.1-1.8); ALT/SGPT 75 U/L (7-56); AST/SGOT 47 U/L (17-59); BLOOD UREA NITROGEN 17 mg/dL (7-21); CALCIUM 9.2 mg/dL (8.4-10.5); GFR NON-AFRICAN AMERICAN > 60
[2018-09-24 06:52] LABS: BASO # 0.03 K/mm3 (0.0-2.0); BASO % 0.3 % (0.0-3.0); EOS # 0.4 (0.0-0.7); EOS % 4.1 % (1.5-5.0); GRAN # 5.43 (1.4-6.5); GRAN % 56.9 % (50.0-68.0); HEMOGLOBIN 14.1 g/dL (14.0-18.0); LYMPH # 2.9 (1.2-3.4); LYMPH % 29.9 % (22.0-35.0); MEAN CELL VOLUME 89.8 fl (80.0-105.0); MEAN CORPUSCULAR HEMOGLOBIN 29.9 pg (25.0-35.0); MEAN CORPUSCULAR HGB CONC 33.3 g/dl (31.0-37.0); MEAN PLATELET VOLUME 10.9 fl (7.0-11.0); MONO # 0.8 (0.1-0.6); MONO % 8.8 % (1.0-6.0); RBC 4.71 10^6/uL (3.5-6.1); RED CELL DISTRIBUTION WIDTH 13.8 % (11.5-14.5); WHITE BLOOD COUNT 9.6 10^3/uL (4.5-11.0)
[2018-09-24 08:17] VITALS: O2SAT 99
[2018-09-24 11:05] VITALS: PULSE 96
[2018-09-24] MEDS: Digoxin 250 mcg (0.25 mg) Tab PO SCH ×2 (11:05→14:26)
--- NOTE | 2018-09-24 11:21 | PN ---
DATE: 09/24/2018 SUBJECTIVE: The patient ambulated without symptoms. However, his heart rate at rest was in the high 90s, went up to 130 with minimal exertion. PHYSICAL EXAMINATION: VITAL SIGNS: On physical exam, blood pressure 114/66, heart rate is in the 90s at rest. NECK: Negative JVD. LUNGS: Without rales. HEART: S1, S2. EXTREMITIES: Without edema. LABORATORY DATA: Hemoglobin is 14.1, BUN and creatinine unremarkable. IMPRESSION: 1. Status post non-ST elevation myocardial infarction. 2. Status post percutaneous transluminal coronary angioplasty and stent. 3. Atrial fibrillation. 4. Hypertension. Given these findings, the patient can be discharged today. We will add digoxin 0.25 to his regimen. The patient has an appointment for an outpatient stress test next week in which we will monitor his heart rate. Kings Brown MD
[2018-09-24 12:27] VITALS: BP 125/90; PULSE 92; RESP 21; TEMP 98.3
--- NOTE | 2018-09-24 12:40 | DS ---
HISTORY OF PRESENT ILLNESS: The patient is in room 264, bed 2. He is sitting up in bed, reading a newspaper. He has no complaints and there have been no acute events overnight. PHYSICAL EXAMINATION: VITAL SIGNS: Temperature of 98 degrees, pulse rate of 70, blood pressure of 137/87, respiratory rate of 18 with an O2 saturation of 99 percent on room air. HEENT: PERRLA, EOMI. No icterus Is present. NECK: Supple with a full range of motion. No bruits or adenopathy is appreciated. LUNGS: Clear to auscultation and percussion bilaterally. HEART: Irregularly irregular. ABDOMEN: Soft. It is nontender. There is no organomegaly. Bowel sounds are normoactive. EXTREMITIES: Show no deformities or edema. NEUROLOGICAL: There are no focal motor deficits. LABORATORY FINDINGS: Hemoglobin and hematocrit of 14.1 and 42.3. Chemistry is entirely normal with the exception of an ALT of 75. IMPRESSION: At this time is: 1. Non-ST elevation myocardial infarction. 2. Atrial fibrillation of acute onset. The patient will be discharged home on sotalol 80 mg twice a day, Cozaar 25 mg daily, Eliquis 5 mg twice a day, Lipitor 40 mg daily and Plavix 75 mg daily. He will be seen in the office in 1 week's duration. Mikel Aguila MD
== END 2018-09-24 16:52 | disposition home or self-care (01) | DRG 247 ==
LOC: ED 12:26 → ERH 13:32 → 2RSO 15:03 → ICU 23:15 → 2RNO 09-21 20:22
PROVIDERS: ADMIT Student in an Organized Health Care Education/Training Program; ATTEND Student in an Organized Health Care Education/Training Program
PROC: 027034Z Dilation of Coronary Artery, One Artery with Drug-eluting Intraluminal Device, Percutaneous Approach (ICD-10-PCS; principal; 2018-09-20)
PROC: 4A023N7 Measurement of Cardiac Sampling and Pressure, Left Heart, Percutaneous Approach (ICD-10-PCS; 2018-09-20)
PROC: B2151ZZ Fluoroscopy of Left Heart using Low Osmolar Contrast (ICD-10-PCS; 2018-09-20)
PROC: B2111ZZ Fluoroscopy of Multiple Coronary Arteries using Low Osmolar Contrast (ICD-10-PCS; 2018-09-20)
PROC: 3E033PZ Introduction of Platelet Inhibitor into Peripheral Vein, Percutaneous Approach (ICD-10-PCS; 2018-09-20)
DX: I21.4 Non-ST elevation (NSTEMI) myocardial infarction (principal); I42.0 Dilated cardiomyopathy; I48.92 Unspecified atrial flutter; I25.10 Atherosclerotic heart disease of native coronary artery without angina pectoris; I48.91 Unspecified atrial fibrillation; I10 Essential (primary) hypertension; I25.5 Ischemic cardiomyopathy; E78.00 Pure hypercholesterolemia, unspecified; I49.3 Ventricular premature depolarization; N40.0 Benign prostatic hyperplasia without lower urinary tract symptoms; E11.9 Type 2 diabetes mellitus without complications; E66.9 Obesity, unspecified; M19.012 Primary osteoarthritis, left shoulder; E78.5 Hyperlipidemia, unspecified; Z79.01 Long term (current) use of anticoagulants; Z79.02 Long term (current) use of antithrombotics/antiplatelets; Z87.891 Personal history of nicotine dependence

== ENCOUNTER 2019-01-18 08:01 | Outpatient (CLI) | payer BC | END 2019-01-18 08:02 | disposition home or self-care (01) | LOC: CARDIO 08:01 ==

== ENCOUNTER 2019-01-21 10:12 | Outpatient (CLI) | payer BC | END 2019-01-21 10:13 | disposition home or self-care (01) | LOC: RAD 10:12 ==